=== PATIENT | female | born 1940 | race Caucasian/White ===

== ENCOUNTER → 2022-09-25 | Outpatient (CLI) | payer MEDICARE, MEDICAID ==
[~2022-09-25] MED LIST: ATOR10TA69 PO; GABA-532 PO; IBUP-2030 PO; METF-414 PO; REGADENOSON 0.4 MG/5 ML IV ONE
== END | disposition home or self-care (01) ==
LOC: NM 07:43
PROVIDERS: ATTEND Internal Medicine Cardiovascular Disease
DX: I25.810 Atherosclerosis of coronary artery bypass graft(s) without angina pectoris (principal); R07.89 Other chest pain; E11.9 Type 2 diabetes mellitus without complications; E78.00 Pure hypercholesterolemia, unspecified
CPT/HCPCS: 78452; 93017; A9500; J2785

== ENCOUNTER 2025-01-03 14:34 | Inpatient (IN) | payer MEDICARE, MEDICAID ==
[~2025-01-03] VITALS: Ht 160 cm; Wt 89.8 kg
[~2025-01-03 14:34] MED LIST changes: +GABA-1180 PO; -GABA-532 PO; -REGADENOSON 0.4 MG/5 ML IV ONE
[2025-01-03 14:37] VITALS: O2SAT 97
[2025-01-03] MEDS ORDERED: LABETALOL 5MG/ML 4ML INJ IV PRN (14:45)
[2025-01-03 15:43] LABS: BASOPHILS % 0.5 % (0.0-2.0); EOSINOPHILS % 6.1 % (0.0-5.0); HEMATOCRIT. 40.7 % (36.0-48.0); LYMPHOCYTES % 27.7 % (20.0-50.0); MEAN CORPUSCULAR HEMOGLOBIN 27.9 pg (28.0-32.0); MEAN CORPUSCULAR HGB CONC 32.1 g/dL (31.0-37.0); MEAN CORPUSCULAR VOLUME 86.9 fL (81.0-99.0); MEAN PLATELET VOLUME 7.8 fl (7.4-10.4); MONOCYTES % 5.8 % (2.0-8.0); NEUTROPHILS % 59.9 % (40.0-76.0); PLATELET 130 x1000/uL (130-400); RED BLOOD CELL COUNT 4.68 mill/uL (4.2-5.4); RED CELL DISTRIBUTION WIDTH 18.7 % (11.6-14.6); WHITE BLOOD COUNT 4.5 x1000/uL (4.5-11.0)
[2025-01-03 15:46] LABS: CHLORIDE 105 mEq/L (98-107); POTASSIUM 4.5 mEq/L (3.5-5.1); SODIUM 140 mEq/L (136-145)
[2025-01-03 15:47] LABS: CALCIUM 8.9 mg/dL (8.7-10.4); CARBON DIOXIDE 29 mEq/L (21-32)
[2025-01-03] MEDS ORDERED: MIRT-89 PO (15:51)
[2025-01-03] MEDS ORDERED: DILT180C66 PO (15:51)
[2025-01-03] MEDS ORDERED: MELO-105 PO (15:51)
[2025-01-03] MEDS ORDERED: EMPA10TA PO (15:51)
[2025-01-03] MEDS ORDERED: LISI-186 PO (15:51)
[2025-01-03] MEDS ORDERED: ATOR-388 PO (15:51)
[2025-01-03] MEDS ORDERED: FLUO10TA35 PO (15:51)
[2025-01-03] MEDS ORDERED: AMI2 PO (15:51)
[2025-01-03] MEDS ORDERED: BRIN8DRO2 EACHEYE (15:51)
[2025-01-03] MEDS ORDERED: PANT40SU PO (15:51)
[2025-01-03] MEDS ORDERED: CILO100T27 PO (15:51)
[2025-01-03] MEDS ORDERED: BACL-141 PO (15:51)
[2025-01-03] MEDS ORDERED: AMLO2.5T2 PO (15:51)
[2025-01-03 15:52] LABS: CREATININE 1.2 mg/dL (0.6-1.0); GLUCOSE 139 mg/dL (70-105); UREA NITROGEN BLOOD 31 mg/dL (9-23)
[2025-01-03 15:54] LABS: TROPONIN I HIGH SENSITIVITY 14 ng/L (3.0-34)
[2025-01-03 15:55] LABS: ETHANOL BLOOD < 10 mg/dL (<10)
[2025-01-03 16:24] LABS: PROTHROMBIN TIME 10.9 sec (9.6-11.0)
[2025-01-03] MEDS: HYDRALAZINE 20MG/ML VIAL IV ONE (16:34)
[2025-01-03 17:48] VITALS: BP 173/60; PULSE 61; O2SAT 98
[2025-01-03] MEDS ORDERED: ACETAMINOPHEN 325MG TABLET PO PRN (19:00)
[2025-01-03] MEDS ORDERED: DEXTROSE 50% WATER 50ML SYRINGE IV PRN (19:00)
[2025-01-03] MEDS ORDERED: GUAIFENESIN 200MG/10ML SUGAR FREE UDC PO PRN (19:00)
[2025-01-03] MEDS ORDERED: ONDANSETRON HCL 4MG/2ML INJ IV PRN (19:00)
[2025-01-03] MEDS ORDERED: DOCUSATE SODIUM 100MG CAPSULE PO PRN (19:00)
[2025-01-03] MEDS ORDERED: IPRATROPIUM/ALBUTEROL 0.5-3(2.5)MG/3ML NEB HHN PRN (19:00)
[2025-01-03 20:00] VITALS: BP 149/59; PULSE 59; RESP 19; TEMP 36.1; O2SAT 97
[2025-01-03] MEDS: INSULIN LISPRO 100 UNITS/ML SUBCUT SCH (21:00)
[2025-01-03] MEDS: ATORVASTATIN CALCIUM 40MG TABLET PO SCH (21:43)
[2025-01-03] MEDS: BLOOD SUGAR DIAGNOSTIC STRIP TEST SCH (21:43)
[2025-01-03 22:55] VITALS: BP 149/59; PULSE 59; RESP 19; TEMP 36.1
[2025-01-04] VITALS: BP 112/55; PULSE 61; RESP 18; TEMP 36.4; O2SAT 96
[2025-01-04 04:00] VITALS: BP 151/58; PULSE 61; RESP 20; TEMP 36.5; O2SAT 97
[2025-01-04 07:44] LABS: CARBON DIOXIDE 30 mEq/L (21-32); CHLORIDE 105 mEq/L (98-107); POTASSIUM 4.1 mEq/L (3.5-5.1); SODIUM 142 mEq/L (136-145)
[2025-01-04 07:45] LABS: CALCIUM 9.5 mg/dL (8.7-10.4)
[2025-01-04 07:49] LABS: BASOPHILS % 0.7 % (0.0-2.0); EOSINOPHILS % 5.1 % (0.0-5.0); GLUCOSE 69 mg/dL (70-105); HEMATOCRIT. 41.1 % (36.0-48.0); HEMOGLOBIN. 13.6 g/dL (12.0-16.0); LYMPHOCYTES % 26.8 % (20.0-50.0); MEAN CORPUSCULAR HEMOGLOBIN 28.4 pg (28.0-32.0); MEAN CORPUSCULAR HGB CONC 33.1 g/dL (31.0-37.0); MEAN CORPUSCULAR VOLUME 85.7 fL (81.0-99.0); MEAN PLATELET VOLUME 8.1 fl (7.4-10.4); MONOCYTES % 5.4 % (2.0-8.0); PLATELET 144 x1000/uL (130-400); RED BLOOD CELL COUNT 4.79 mill/uL (4.2-5.4); RED CELL DISTRIBUTION WIDTH 18.7 % (11.6-14.6); T4 FREE 1.37 ng/dL (0.89-1.76); WHITE BLOOD COUNT 4.8 x1000/uL (4.5-11.0)
[2025-01-04 07:50] LABS: THYROID STIMULATING HORMONE 3.33 uIU/mL (0.55-4.78); TRIGLYCERIDE 115 mg/dL (0-150); UREA NITROGEN BLOOD 28 mg/dL (9-23)
[2025-01-04 07:51] LABS: LDL CHOLESTEROL 52 mg/dL (5-100)
[2025-01-04 07:52] LABS: CHOLESTEROL 135 mg/dL (<200); HDL CHOLESTEROL 52 mg/dL (>65)
[2025-01-04 08:00] VITALS: BP 103/64; PULSE 64; RESP 18; TEMP 36.4; O2SAT 96
[2025-01-04] MEDS ORDERED: AMLODIPINE 2.5MG TABLET PO SCH (09:00)
[2025-01-04] MEDS: AMIODARONE 200MG TABLET PO SCH (09:00)
[2025-01-04] MEDS ORDERED: DILTIAZEM HCL 180MG CAPSULE ER 24HR PO SCH (09:00)
[2025-01-04] MEDS: PANTOPRAZOLE 40MG DR TABLET PO SCH (10:44)
[2025-01-04] MEDS: AMLODIPINE 5MG TABLET PO SCH (10:45)
[2025-01-04] MEDS: ASPIRIN 81MG TABLET PO SCH (10:48)
[2025-01-04 12:00] VITALS: BP 165/64; PULSE 70; RESP 18; TEMP 36.4; O2SAT 97
[2025-01-04 16:00] VITALS: BP 164/69; PULSE 68; RESP 18; TEMP 36.2; O2SAT 96
[2025-01-04] MEDS: HYDRALAZINE 20MG/ML VIAL IV PRN (18:43)
[2025-01-04 20:00] VITALS: BP 151/59; PULSE 80; RESP 18; TEMP 36.6; O2SAT 94
[2025-01-05] VITALS: BP 133/61; PULSE 75; RESP 18; TEMP 36.2; O2SAT 97
[2025-01-05 04:00] VITALS: BP 127/52; PULSE 73; RESP 19; TEMP 36.6; O2SAT 96
[2025-01-05 05:54] LABS: BASOPHILS % 0.5 % (0.0-2.0); EOSINOPHILS % 3.9 % (0.0-5.0); HEMATOCRIT. 40.5 % (36.0-48.0); HEMOGLOBIN. 13.6 g/dL (12.0-16.0); LYMPHOCYTES % 24.5 % (20.0-50.0); MEAN CORPUSCULAR HEMOGLOBIN 28.2 pg (28.0-32.0); MEAN CORPUSCULAR HGB CONC 33.7 g/dL (31.0-37.0); MEAN CORPUSCULAR VOLUME 83.6 fL (81.0-99.0); MEAN PLATELET VOLUME 8.2 fl (7.4-10.4); MONOCYTES % 6.6 % (2.0-8.0); NEUTROPHILS % 64.5 % (40.0-76.0); PLATELET 140 x1000/uL (130-400); RED BLOOD CELL COUNT 4.84 mill/uL (4.2-5.4); RED CELL DISTRIBUTION WIDTH 18.7 % (11.6-14.6); WHITE BLOOD COUNT 4.9 x1000/uL (4.5-11.0)
[2025-01-05 05:59] LABS: CALCIUM 9.7 mg/dL (8.7-10.4)
[2025-01-05 08:00] VITALS: BP 128/65; PULSE 86; RESP 16; TEMP 36.4; O2SAT 96
[2025-01-05] MEDS ORDERED: DILTIAZEM HCL 120MG CAPSULE ER 24HR PO SCH (09:00)
[2025-01-05 12:00] VITALS: BP 178/79; PULSE 106; RESP 16; TEMP 36.4; O2SAT 96
[2025-01-05] MEDS: CLOPIDOGREL 75MG TABLET PO SCH (13:06)
[2025-01-05 14:41] LABS: VITAMIN B12 SERUM 638 pg/mL (211-911)
[2025-01-05] MEDS: ENOXAPARIN 100MG/ML SYR SUBCUT SCH (15:10)
[2025-01-05 16:00] VITALS: BP 163/66; PULSE 82; RESP 19; TEMP 36.4; O2SAT 96
[2025-01-05 20:00] VITALS: BP 123/47; PULSE 76; RESP 18; TEMP 36.8; O2SAT 97
[2025-01-05] MEDS: METOPROLOL TARTRATE 50MG TABLET PO SCH (22:01)
[2025-01-05 23:43] LABS: CLARITY URINE CLEAR (CLEAR); COLOR URINE YELLOW (YELLOW); GLUCOSE URINE 3+ (NEGATIVE); KETONES URINE NEGATIVE (NEGATIVE); LEUKOCYTE ESTERASE URINE NEGATIVE (NEGATIVE); NITRITE URINE NEGATIVE (NEGATIVE); OCCULT BLOOD URINE NEGATIVE (NEGATIVE); PH URINE 6.5 (4.5-8.0); PROTEIN URINE TRACE (NEGATIVE); SPECIFIC GRAVITY URINE 1.021 (1.005-1.030)
[2025-01-05 23:53] LABS: *AMPHETAMINES SCREEN URINE NEGATIVE (NEGATIVE); *BARBITURATES SCREEN URINE NEGATIVE (NEGATIVE); *BENZODIAZEPINES SCREEN URINE NEGATIVE (NEGATIVE); *COCAINE SCREEN URINE NEGATIVE (NEGATIVE); CANNABINOID URINE SCREEN NEGATIVE (NEGATIVE); ECSTASY MDMA SCREEN URINE NEGATIVE (NEGATIVE); METHADONE URINE SCREEN NEGATIVE (NEGATIVE); OPIATES URINE SCREEN NEGATIVE (NEGATIVE); PHENCYCLIDINE URINE SCREEN NEGATIVE (NEGATIVE)
[2025-01-06] VITALS: BP 156/50; PULSE 61; RESP 18; TEMP 36.4; O2SAT 98
[2025-01-06 01:04] LABS: BACTERIA URINE NONE SEEN; RBC URINE 0-2 /hpf (0-2); SQUAMOUS EPITHELIAL CELL URINE NONE SEEN /lpf (RARE/1+); WBC URINE 0-2 /hpf (0-2)
[2025-01-06] MEDS: MELATONIN 3MG TABLET PO PRN (02:24)
[2025-01-06 04:00] VITALS: BP 123/44; PULSE 61; RESP 18; TEMP 35.8; O2SAT 98
[2025-01-06] MEDS ORDERED: HALOPERIDOL LACTATE 5MG/ML VIAL IM NR (05:45)
[2025-01-06 08:00] VITALS: BP 101/53; PULSE 125; RESP 20; TEMP 37; O2SAT 96
[2025-01-06] MEDS ORDERED: AMLODIPINE 10MG TABLET PO SCH (09:00)
[2025-01-06 12:00] VITALS: BP 101/53; PULSE 73; RESP 16; TEMP 36.2; O2SAT 97
[2025-01-06] MEDS: QUETIAPINE FUMARATE 25MG TABLET PO SCH (12:44)
[2025-01-06 16:00] VITALS: BP 151/57; PULSE 85; RESP 18; TEMP 36.6; O2SAT 96
[2025-01-06 20:00] VITALS: BP 126/43; PULSE 68; RESP 20; TEMP 36.2; O2SAT 94
[2025-01-06 20:25] LABS: AMMONIA < 17 uMol/L (<32)
[2025-01-07] VITALS: BP 163/65; PULSE 70; RESP 20; TEMP 36.2; O2SAT 97
[2025-01-07 04:00] VITALS: RESP 18; TEMP 36.4
[2025-01-07 08:00] VITALS: BP 136/48; PULSE 61; RESP 16; TEMP 35.9; O2SAT 91; O2SAT 92
[2025-01-07 12:00] VITALS: BP 146/50; PULSE 58; RESP 16; TEMP 35.9; O2SAT 95
[2025-01-07 16:00] VITALS: BP 134/44; PULSE 46; RESP 16; TEMP 35.8; O2SAT 97
[2025-01-07 20:00] VITALS: BP 141/46; PULSE 54; RESP 20; TEMP 35.2; O2SAT 92
[2025-01-07] MEDS: METOPROLOL TARTRATE 25MG TABLET PO SCH (21:00)
[2025-01-08] VITALS: BP 147/91; PULSE 55; RESP 20; TEMP 36.1; O2SAT 94
[2025-01-08 04:00] VITALS: BP 148/56; PULSE 50; RESP 20; TEMP 35.9; O2SAT 96
[2025-01-08 08:42] VITALS: BP 163/48; PULSE 55; RESP 18; TEMP 36.4; O2SAT 100
[2025-01-08] MEDS: AMIODARONE 200MG TABLET PO SCH (09:01)
[2025-01-08 11:06] LABS: BASOPHILS % 0.5 % (0.0-2.0); EOSINOPHILS % 2.7 % (0.0-5.0); HEMATOCRIT. 40.9 % (36.0-48.0); HEMOGLOBIN. 13.4 g/dL (12.0-16.0); LYMPHOCYTES % 24.6 % (20.0-50.0); MEAN CORPUSCULAR HEMOGLOBIN 28.1 pg (28.0-32.0); MEAN CORPUSCULAR HGB CONC 32.9 g/dL (31.0-37.0); MEAN CORPUSCULAR VOLUME 85.6 fL (81.0-99.0); MEAN PLATELET VOLUME 8.4 fl (7.4-10.4); MONOCYTES % 6.7 % (2.0-8.0); NEUTROPHILS % 65.5 % (40.0-76.0); PLATELET 141 x1000/uL (130-400); RED BLOOD CELL COUNT 4.78 mill/uL (4.2-5.4); RED CELL DISTRIBUTION WIDTH 18.6 % (11.6-14.6); WHITE BLOOD COUNT 4.6 x1000/uL (4.5-11.0)
[2025-01-08 11:19] LABS: POTASSIUM 3.8 mEq/L (3.5-5.1)
[2025-01-08 11:21] LABS: CALCIUM 9.7 mg/dL (8.7-10.4)
[2025-01-08 11:26] LABS: CREATININE 1.2 mg/dL (0.6-1.0)
[2025-01-08 12:00] VITALS: BP 143/61; PULSE 77; RESP 17; TEMP 36.4; O2SAT 96
[2025-01-08] MEDS ORDERED: QUET25TA PO (15:35)
[2025-01-08] MEDS ORDERED: CLOP75TA33 MT (15:37)
[2025-01-08] MEDS ORDERED: METO25TA6 PO (15:39)
[2025-01-08 16:00] VITALS: BP 146/47; PULSE 50; TEMP 36.1
[2025-01-08] MEDS: MAGNESIUM/ALUMINUM HYDROXIDE/SIMETHICONE 30ML UDC PO PRN (18:37)
[2025-01-08 20:00] VITALS: BP 160/55; PULSE 56; RESP 19; TEMP 36.5; O2SAT 97
[2025-01-08] MEDS: AMLODIPINE 2.5MG TABLET PO SCH (23:46)
[2025-01-09] VITALS: BP 142/50; PULSE 55; RESP 19; TEMP 36.3; O2SAT 98
[2025-01-09 04:00] VITALS: BP 165/52; PULSE 54; RESP 19; TEMP 36.4; O2SAT 98
[2025-01-09 08:00] VITALS: BP 175/53; PULSE 50; RESP 18; TEMP 36.7; O2SAT 99
[2025-01-09 12:00] VITALS: BP 158/48; PULSE 51; RESP 18; TEMP 36.6; O2SAT 98
[2025-01-09] MEDS ORDERED: ASPI-1497 MT (14:08)
[2025-01-09 16:00] VITALS: BP 183/60; PULSE 61; RESP 18; TEMP 36.7; O2SAT 98
[2025-01-09 20:00] VITALS: BP 107/65; PULSE 89; RESP 21; TEMP 36.2; O2SAT 99
[2025-01-10] VITALS: BP 137/50; PULSE 72; RESP 18; TEMP 36.2; O2SAT 98
== END 2025-01-10 02:05 | DRG 64 ==
LOC: ER 14:34 → 6WST 17:54
PROVIDERS: ADMIT Internal Medicine; ATTEND Internal Medicine
DX: I63.9 Cerebral infarction, unspecified (principal); G82.50 Quadriplegia, unspecified; G93.41 Metabolic encephalopathy; I16.1 Hypertensive emergency; N17.9 Acute kidney failure, unspecified; E78.5 Hyperlipidemia, unspecified; I25.10 Atherosclerotic heart disease of native coronary artery without angina pectoris; N18.9 Chronic kidney disease, unspecified; Z95.1 Presence of aortocoronary bypass graft; I48.0 Paroxysmal atrial fibrillation; H54.62 Unqualified visual loss, left eye, normal vision right eye; H54.61 Unqualified visual loss, right eye, normal vision left eye; R47.1 Dysarthria and anarthria; R13.10 Dysphagia, unspecified; I27.20 Pulmonary hypertension, unspecified; D32.9 Benign neoplasm of meninges, unspecified; E11.22 Type 2 diabetes mellitus with diabetic chronic kidney disease; I12.9 Hypertensive chronic kidney disease with stage 1 through stage 4 chronic kidney disease, or unspecified chronic kidney disease; I08.1 Rheumatic disorders of both mitral and tricuspid valves; E11.621 Type 2 diabetes mellitus with foot ulcer; Z60.2 Problems related to living alone; E11.42 Type 2 diabetes mellitus with diabetic polyneuropathy; E11.51 Type 2 diabetes mellitus with diabetic peripheral angiopathy without gangrene; F41.9 Anxiety disorder, unspecified; Z95.818 Presence of other cardiac implants and grafts; Z88.5 Allergy status to narcotic agent; Z88.0 Allergy status to penicillin; Z79.82 Long term (current) use of aspirin; Z79.02 Long term (current) use of antithrombotics/antiplatelets; Z78.1 Physical restraint status
CPT/HCPCS: 36415; 70496; 70498; 70551; 71045; 80048; 80061; 80305; 80320; 81003; 82140; 82607; 82962; 83036; 83735; 83880; 84100; 84145; 84439; 84443; 84484; 85025; 86850; 86900; 93005; 93308; 93970; 97162; 97167; 97530; 99291; A4606; J0360; J1650; J1815; G0480